=== PATIENT | female | born 1930 | race Two or more races ===

== ENCOUNTER 2017-09-01 13:45 | Inpatient (IN) | payer MEDICARE, MEDICAID ==
[~2017-09-01] VITALS: Ht 157.5 cm; Wt 49.9 kg
[~2017-09-01 13:45] MED LIST: ACIPHEX20 MG PO; ASPIR-LOW81 MG PO; GLUCOPHAGE500 MG PO; JANUVIA100 MG PO; MIRTAZAPINE30 MG PO; OSTERA TABLET1 EACH PO; PRAVACHOL40 MG PO; ROPINIROLE HCL2 MG PO
--- NOTE | 2017-09-01 14:36 | Emergency Room Report ---
History of Present Illness General Chief Complaint: Altered Level of Consciousness Source: EMS Present Illness HPI This patient presents by EMS from adult daycare. Apparently when she was dropped off this morning at adult daycare she was sleepier than usual. At baseline she has severe dementia. However, she kept falling asleep all day today. This is not typical for her behavior. Per report by EMS, the patient had been given Xanax by a family member this morning. This is not confirmed. There've been no other symptoms. The patient is arousable to name and will open eyes. However she will immediately fall back asleep. There is been no report of fever or chills or nausea or vomiting. There are no other complaints. Allergies: Coded Allergies: No Known Allergies (Unverified , 04/27/12) Patient History Past Medical History: see triage record, DM, HTN, GERD, dementia, other Past Surgical History: unable to obtain Pertinent Family History: unable to obtain Social History: Denies: smoking, alcohol use, drug use Last Menstrual Period: na Reviewed Nursing Documentation: PMH: Agreed; PSxH: Agreed Nursing Documentation-PMH Past Medical History: No History, Except For Hx Cardiac Problems: Yes Hx Diabetes: Yes Hx Cancer: No Hx Gastrointestinal Problems: Yes Hx Neurological Problems: No Review of Systems All Other Systems: limited Physical Exam Vital Signs Date Time Temp Pulse Resp B/P (MAP) Pulse Ox O2 Delivery O2 Flow Rate FiO2 09/01/17 13:37 65 12 107/53 97 Room Air Sp02 EP Interpretation: reviewed, normal General Appearance: no apparent distress, GCS 15, non-toxic, other - Sleepy but arousable. Head: normocephalic, atraumatic Eyes: bilateral eye normal inspection, bilateral eye PERRL ENT: hearing grossly normal, normal pharynx, no angioedema, normal voice Neck: full range of motion, supple/symm/no masses Respiratory: chest non-tender, lungs clear, normal breath sounds, no respiratory distress, no retraction, no accessory muscle use, speaking full sentences Cardiovascular #1: regular rate, rhythm, no edema Gastrointestinal: normal bowel sounds, non tender, soft, non-distended, no guarding, no rebound Rectal: deferred Musculoskeletal: normal range of motion, non-tender Neurologic: responsive, motor strength/tone normal, other - Non-focal. Sleepy but arousable. Follows very simple command. Unable to do full neuro exam. Skin: normal color, no rash, warm/dry, well hydrated Medical Decision Making Diagnostic Impression: Primary Impression: Altered level of consciousness ER Course The patient's daughter arrived and was bedside. I was able to get a better history on this patient. Apparently, this is happened multiple times in the past. The patient was recently admitted to another hospital where she underwent a very thorough workup to include a CT of her head, MRI of her brain and extensive laboratory workup. There was no etiology identified. The patient had been on Xanax, however, the daughter states that the caregivers are not supposed to be giving the patient the Xanax. Per EMS, when the caregivers were contacted, they reported they had given the patient Xanax this morning. I am unsure whether this patient received the Xanax. Further discussion with the daughter and the patient did get Xanax 2 days ago but doesn't believe she got it today. The family is uncomfortable taking the patient home this sleepy. Workup here in the emergency department was unremarkable. I did a CT of the head and laboratory studies to include CBC, CMP, cardiac enzymes and thyroid panel. These were all unremarkable. The patient is sleepy but arousable. The daughter states this is similar to her normal episodes. She is unsure whether her mom did have good sleep last night. Regardless, the patient will be admitted to see if she can clear her sleepiness and for further monitoring. Laboratory Tests Test 09/01/17 14:27 White Blood Count 8.7 K/UL (4.8-10.8) Red Blood Count 3.83 M/UL (4.20-5.40) L Hemoglobin 11.7 G/DL (12.0-16.0) L Hematocrit 35.2 % (37.0-47.0) L Mean Corpuscular Volume 92 FL (80-99) Mean Corpuscular Hemoglobin 30.4 PG (27.0-31.0) Mean Corpuscular Hemoglobin Concent 33.1 G/DL (32.0-36.0) Red Cell Distribution Width 13.5 % (11.6-14.8) Platelet Count 212 K/UL (150-450) Mean Platelet Volume 9.3 FL (6.5-10.1) Neutrophils (%) (Auto) 54.3 % (45.0-75.0) Lymphocytes (%) (Auto) 35.2 % (20.0-45.0) Monocytes (%) (Auto) 6.9 % (1.0-10.0) Eosinophils (%) (Auto) 2.5 % (0.0-3.0) Basophils (%) (Auto) 1.2 % (0.0-2.0) Prothrombin Time 9.4 SEC (9.30-11.50) Prothrombin Time INR 0.9 (0.9-1.1) PTT 24 SEC (23-33) Sodium Level 138 MMOL/L (136-145) Potassium Level 4.3 MMOL/L (3.5-5.1) Chloride Level 102 MMOL/L (98-107) Carbon Dioxide Level 32 MMOL/L (21-32) Anion Gap 4 mmol/L (5-15) L Blood Urea Nitrogen 29 mg/dL (7-18) H Creatinine 1.2 MG/DL (0.55-1.30) Estimate Glomerular Filtration Rate mL/min (>60) Glucose Level 114 MG/DL (74-106) H Lactic Acid Level 1.50 mmol/L (0.66-2.22) Calcium Level 10.1 MG/DL (8.5-10.1) Total Bilirubin 0.1 MG/DL (0.2-1.0) L Aspartate Amino Transferase (AST) 12 U/L (15-37) L Alanine Aminotransferase (ALT) 19 U/L (12-78) Alkaline Phosphatase 74 U/L (46-116) Total Creatine Kinase 36 U/L (26-308) Creatine Kinase MB 0.8 NG/ML (0.0-3.6) Creatine Kinase MB Relative Index 2.2 Troponin I 0.000 ng/mL (0.000-0.056) Total Protein 7.6 G/DL (6.4-8.2) Albumin 3.5 G/DL (3.4-5.0) Globulin 4.1 g/dL Albumin/Globulin Ratio 0.9 (1.0-2.7) L Thyroid Stimulating Hormone (TSH) 1.251 uiU/mL (0.358-3.740) Free Thyroxine 0.93 NG/DL (0.76-1.46) EKG Diagnostic Results Rate: normal Rhythm: NSR ST Segments: no acute changes Rhythm Strip Diag. Results EP Interpretation: yes Rate: 60's Rhythm: NSR, no PVC's, no ectopy Chest X-Ray Diagnostic Results Chest X-Ray Diagnostic Results : Chest X-Ray Ordered: Yes # of Views/Limited/Complete: 1 View Indication: Other EP Interpretation: Yes Interpretation: no consolidation, no effusion, no pneumothorax, no acute cardiopulmonary disease Impression: No acute disease Electronically Signed by: Elias CT/MRI/US Diagnostic Results CT/MRI/US Diagnostic Results : Imaging Test Ordered: CT head Impression No acute findings. See official report. Last Vital Signs Date Time Temp Pulse Resp B/P (MAP) Pulse Ox O2 Delivery O2 Flow Rate FiO2 09/01/17 13:37 65 12 107/53 97 Room Air Disposition: ADMITTED INPATIENT Condition: Stable NATALIIA MARINA D.O. Sep 01, 2017 14:36
[2017-09-01 14:40] LABS: BASOPHILS % (AUTO) 1.2 % (0.0-2.0); EOSINOPHILS % (AUTO) 2.5 % (0.0-3.0); HEMATOCRIT 35.2 % (37.0-47.0); HEMOGLOBIN 11.7 G/DL (12.0-16.0); LYMPHOCYTES % (AUTO) 35.2 % (20.0-45.0); MEAN CORPUSCULAR VOLUME 92 FL (80-99); MONOCYTES % (AUTO) 6.9 % (1.0-10.0); NEUTROPHILS % (AUTO) 54.3 % (45.0-75.0); PLATELET COUNT 212 K/UL (150-450); RED BLOOD COUNT 3.83 M/UL (4.20-5.40); RED CELL DISTRIBUTION WIDTH 13.5 % (11.6-14.8); WHITE BLOOD COUNT 8.7 K/UL (4.8-10.8)
[2017-09-01 14:49] LABS: ANION GAP 4 mmol/L (5-15); BLOOD UREA NITROGEN 29 mg/dL (7-18); CALCIUM 10.1 MG/DL (8.5-10.1); CARBON DIOXIDE 32 MMOL/L (21-32); CHLORIDE 102 MMOL/L (98-107); CREATININE 1.2 MG/DL (0.55-1.30); INR 0.9 (0.9-1.1); POTASSIUM 4.3 MMOL/L (3.5-5.1); SODIUM 138 MMOL/L (136-145)
--- NOTE | 2017-09-01 14:53 | Diagnostic Imaging Report ---
Indications: Altered mental status Technique: Spiral acquisitions obtained through the brain. Angled axial and coronal 5 x 5 mm slices were reconstructed. Total dose length product 1362.01 mGycm. CTDI vol(s) 70.38 mGy. Dose reduction achieved using automated exposure control Comparison: None. Findings: There is age-related enlargement of the ventricles and extra axial CSF spaces. Focal dilatations of the bilateral hemispheric sulci may reflect old cortical infarcts. There is periventricular deep white matter low-attenuation, consistent with chronic periventricular deep white matter ischemic change. No acute intracranial hemorrhage or edema. No mass effect nor midline shift. Intact calvarium. The visualized orbits and sinuses are unremarkable. Impression: Chronic and age-related changes. Negative for acute intracranial bleed or mass effect The CT scanner at [facility] is accredited by the [employer] and the scans are performed using protocols designed to limit radiation exposure to as low as reasonably achievable to attain images of sufficient resolution adequate for diagnostic evaluation.
[2017-09-01 15:04] LABS: ALANINE AMINOTRANSFERASE 19 U/L (12-78); ALBUMIN 3.5 G/DL (3.4-5.0); ALBUMIN/GLOBULIN RATIO 0.9 (1.0-2.7); ALKALINE PHOSPHATASE 74 U/L (46-116); ASPARTATE AMINO TRANSFERASE 12 U/L (15-37); BILIRUBIN,TOTAL 0.1 MG/DL (0.2-1.0); CKMB 0.8 NG/ML (0.0-3.6); CREATINE KINASE 36 U/L (26-308)
--- NOTE | 2017-09-01 15:11 | Diagnostic Imaging Report ---
Indication: Shortness of breath Technique: One view of the chest Comparison: none Findings: Suboptimal inspiration. Normal heart size. Tortuous calcified aorta. Upper mediastinum is unremarkable Impression: No acute process
[2017-09-01 15:53] VITALS: BP 126/57
[2017-09-01 17:46] VITALS: BP 124/72
[2017-09-01] MEDS ORDERED: QUETIAPINE FUMA25 MG ORAL (18:01)
[2017-09-01] MEDS ORDERED: RAMIPRIL2.5 MG ORAL (18:01)
[2017-09-01] MEDS ORDERED: CALCIUM 600 +1 EAC2 PO (18:12)
[2017-09-01] MEDS ORDERED: LEXAPRO10 MG ORAL (18:12)
[2017-09-01] MEDS ORDERED: MYRBETRIQ50 MG PO (18:12)
[2017-09-01] MEDS ORDERED: XIGDUO XR 5 MG1 EAC1 PO (18:12)
[2017-09-01] MEDS ORDERED: GABAPENTIN300 MG ORAL (18:12)
[2017-09-01] MEDS ORDERED: ALPRAZOLAM0.25 MG ORAL (18:12)
[2017-09-01] MEDS ORDERED: XANAX0.5 MG ORAL (18:12)
[2017-09-01] MEDS ORDERED: Miralax 17gm pkt ORAL PRN (20:00)
[2017-09-01] MEDS ORDERED: Morphine Sulfate 4mg/ml Inj IVP PRN (20:00)
[2017-09-01] MEDS ORDERED: LORazepam Inj 2mg/ml 1ml IV PRN (20:00)
[2017-09-01] MEDS ORDERED: Mylanta II UD 30ml ORAL PRN (20:00)
[2017-09-01] MEDS ORDERED: Nitroglycerin Subl 0.4mg tab SL PRN (20:00)
[2017-09-01] MEDS ORDERED: Albuterol/Ipratropium 3ml neb HHN PRN (20:00)
[2017-09-01] MEDS: Heparin 5000 units/ml inj SUBQ SCH (21:58)
[2017-09-02] VITALS: BP 133/61
[2017-09-02 04:00] VITALS: BP 124/64
[2017-09-02 08:00] VITALS: BP 139/73
[2017-09-02 08:30] LABS: BASOPHILS % (AUTO) 0.8 % (0.0-2.0); EOSINOPHILS % (AUTO) 2.1 % (0.0-3.0); HEMATOCRIT 35.9 % (37.0-47.0); HEMOGLOBIN 11.9 G/DL (12.0-16.0); LYMPHOCYTES % (AUTO) 30.3 % (20.0-45.0); MEAN CORPUSCULAR VOLUME 92 FL (80-99); NEUTROPHILS % (AUTO) 59.7 % (45.0-75.0); PLATELET COUNT 202 K/UL (150-450); RED BLOOD COUNT 3.91 M/UL (4.20-5.40); RED CELL DISTRIBUTION WIDTH 13.5 % (11.6-14.8); WHITE BLOOD COUNT 6.6 K/UL (4.8-10.8)
[2017-09-02 08:41] LABS: INR 0.9 (0.9-1.1)
[2017-09-02] MEDS ORDERED: Ramipril 2.5mg cap ORAL SCH (09:00)
[2017-09-02] MEDS: Heparin 5000 units/ml inj SUBQ SCH (09:02)
[2017-09-02 09:10] LABS: ALANINE AMINOTRANSFERASE 16 U/L (12-78); ALBUMIN/GLOBULIN RATIO 0.8 (1.0-2.7); ALKALINE PHOSPHATASE 67 U/L (46-116); ANION GAP 3 mmol/L (5-15); ASPARTATE AMINO TRANSFERASE 12 U/L (15-37); BILIRUBIN,TOTAL 0.2 MG/DL (0.2-1.0); BLOOD UREA NITROGEN 25 mg/dL (7-18); CARBON DIOXIDE 30 MMOL/L (21-32); CHLORIDE 108 MMOL/L (98-107); CHOLESTEROL 155 MG/DL (< 200); HDL CHOLESTEROL 43 MG/DL (40-60); POTASSIUM 4.1 MMOL/L (3.5-5.1); SODIUM 141 MMOL/L (136-145); TRIGLYCERIDES 130 MG/DL (30-150)
[2017-09-02 12:00] VITALS: BP 109/59
--- NOTE | 2017-09-02 14:35 | Consultation ---
History of Present Illness General Date patient seen: Sep 02, 2017 Chief Complaint: Altered Level of Consciousness Present Illness HPI patient presents by EMS from adult daycare. she was sleepier than usual. the pt pw waxing and waning of consciousness. the pt is confused and disoriented. the pt has cognitive impairment and is confused. the pt was asleep and sitter was at bedside. d/w nurse and charge to dc the sitter. Both were adamant against it. both were told to contact me if pt agitated and give meds to treat agitation, observe and monitor. If the medications wont work may consider sitter. Allergies: Coded Allergies: No Known Allergies (Unverified , 04/27/12) Medication History Scheduled Alprazolam* (Xanax*), 0.5 MG ORAL HS, (Reported) Alprazolam* (Xanax*), 0.25 MG ORAL AM, (Reported) Aspirin* (Aspir-Low*), 81 MG PO DAILY, (Reported) Calcium Carbonate/Vitamin D3 (Calcium 600 + Vit D 200 Tablet), 1 EACH PO BID, ( Reported) Dapagliflozin/Metformin HCl (Xigduo Xr 5 mg-1,000 mg Tablet), 1 EACH PO BID, ( Reported) Escitalopram Oxalate* (Lexapro*), 10 MG ORAL DAILY, (Reported) Gabapentin* (Gabapentin*), 300 MG ORAL BEDTIME, (Reported) Mirabegron (Myrbetriq), 50 MG PO DAILY, (Reported) Pravastatin Sodium (Pravachol), 40 MG PO HS, (Reported) Quetiapine Fumarate* (Seroquel*), 50 MG ORAL HS, (Reported) Ramipril* (Ramipril*), 2.5 MG ORAL DAILY, (Reported) Ropinirole Hcl* (Ropinirole Hcl*), 2 MG PO HS, (Reported) Discontinued Medications Metformin Hcl* (Glucophage*), 1,000 MG PO BID, (Reported) Discontinued Reason: Therapy completed Mirtazapine* (Remeron*), 30 MG PO QHS, (Reported) Discontinued Reason: Therapy completed Rabeprazole Sodium (Aciphex), 20 MG PO DAILY, (Reported) Discontinued Reason: Therapy completed Sitagliptin (Januvia), 100 MG PO DAILY, (Reported) Discontinued Reason: Pt stopped taking med Vit D3 & K/Berberine Hcl/Hops (Ostera Tablet), 1 EACH PO 1XWEEK, (Reported) Discontinued Reason: Pt stopped taking med Patient History Limited by: medical condition History Provided By: Patient, Medical Record Healthcare decision maker Resuscitation status Full Code Advanced Directive on File Review of Systems Psychiatric: Reports: see HPI, prior hx, anxiety, depressed feelings Physical Exam General Appearance: no apparent distress, alert, confused Last 24 Hour Vital Signs Date Time Temp Pulse Resp B/P (MAP) Pulse Ox O2 Delivery O2 Flow Rate FiO2 09/02/17 12:00 97.9 75 17 109/59 99 97.9 09/02/17 09:01 131/73 09/02/17 08:31 78 16 Room Air 21 09/02/17 08:00 98.0 73 19 139/73 98 98.0 09/02/17 04:00 97.7 65 19 124/64 97 97.7 09/02/17 00:00 97.9 63 20 133/61 97 97.9 09/01/17 20:27 97.8 72 21 124/72 98 Room Air 97.8 09/01/17 17:46 97.8 72 21 124/72 98 Room Air 97.8 09/01/17 15:53 68 22 126/57 97 Room Air Intake and Output 09/01/17 09/02/17 19:00 07:00 Intake Total 240 ml Output Total 0 ml Balance 0 ml 240 ml Intake Oral 240 ml Output Urine Total 0 ml # Voids 2 Laboratory Tests Test 09/02/17 08:00 White Blood Count 6.6 K/UL (4.8-10.8) Red Blood Count 3.91 M/UL (4.20-5.40) L Hemoglobin 11.9 G/DL (12.0-16.0) L Hematocrit 35.9 % (37.0-47.0) L Mean Corpuscular Volume 92 FL (80-99) Mean Corpuscular Hemoglobin 30.4 PG (27.0-31.0) Mean Corpuscular Hemoglobin Concent 33.1 G/DL (32.0-36.0) Red Cell Distribution Width 13.5 % (11.6-14.8) Platelet Count 202 K/UL (150-450) Mean Platelet Volume 9.3 FL (6.5-10.1) Neutrophils (%) (Auto) 59.7 % (45.0-75.0) Lymphocytes (%) (Auto) 30.3 % (20.0-45.0) Monocytes (%) (Auto) 7.0 % (1.0-10.0) Eosinophils (%) (Auto) 2.1 % (0.0-3.0) Basophils (%) (Auto) 0.8 % (0.0-2.0) Prothrombin Time 9.9 SEC (9.30-11.50) Prothromb Time International Ratio 0.9 (0.9-1.1) Activated Partial Thromboplast Time 24 SEC (23-33) Sodium Level 141 MMOL/L (136-145) Potassium Level 4.1 MMOL/L (3.5-5.1) Chloride Level 108 MMOL/L (98-107) H Carbon Dioxide Level 30 MMOL/L (21-32) Anion Gap 3 mmol/L (5-15) L Blood Urea Nitrogen 25 mg/dL (7-18) H Creatinine 1.0 MG/DL (0.55-1.30) Estimat Glomerular Filtration Rate mL/min (>60) Glucose Level 104 MG/DL (74-106) Calcium Level 10.0 MG/DL (8.5-10.1) Total Bilirubin 0.2 MG/DL (0.2-1.0) Aspartate Amino Transf (AST/SGOT) 12 U/L (15-37) L Alanine Aminotransferase (ALT/SGPT) 16 U/L (12-78) Alkaline Phosphatase 67 U/L (46-116) Total Protein 6.9 G/DL (6.4-8.2) Albumin 3.0 G/DL (3.4-5.0) L Globulin 3.9 g/dL Albumin/Globulin Ratio 0.8 (1.0-2.7) L Triglycerides Level 130 MG/DL (30-150) Cholesterol Level 155 MG/DL (< 200) LDL Cholesterol 87 mg/dL (<100) HDL Cholesterol 43 MG/DL (40-60) Cholesterol/HDL Ratio 3.6 (3.3-4.4) Thyroid Stimulating Hormone (TSH) 0.793 uiU/mL (0.358-3.740) Height (Feet): 5 Height (Inches): 2.00 Weight (Pounds): 110 Medications Current Medications Medications (Trade) Dose Ordered Sig/Stepan Route PRN Reason Start Time Stop Time Status Last Admin Dose Admin Acetaminophen (Tylenol) 650 mg Q4H PRN ORAL fever 09/01/17 20:00 10/01/17 19:59 Al Hydroxide/Mg Hydroxide (Mylanta II) 30 ml Q6H PRN ORAL dyspepsia 09/01/17 20:00 10/01/17 19:59 Albuterol/ Ipratropium (Albuterol/ Ipratropium) 3 ml Q4H PRN HHN Shortness of Breath 09/01/17 20:00 09/06/17 19:59 Clonidine HCl (Catapres Tab) 0.1 mg Q4H PRN ORAL SBP > 160 09/01/17 20:00 10/01/17 19:59 Dextrose (Dextrose 50%) 25 ml STAT PRN IV Hypoglycemia btwn 60-69 mg/dL 09/01/17 20:00 10/01/17 19:59 Dextrose (Dextrose 50%) 50 ml STAT PRN IV Hypoglycemia <60 mg/dL 09/01/17 20:00 10/01/17 19:59 Escitalopram Oxalate (Lexapro) 10 mg DAILY ORAL 09/02/17 09:00 10/02/17 08:59 09/02/17 09:01 Gabapentin (Neurontin) 300 mg BEDTIME ORAL 09/01/17 21:00 10/01/17 20:59 09/01/17 21:56 Heparin Sodium (Porcine) (Heparin 5000 units/ml) 5,000 units EVERY 12 HOURS SUBQ 09/01/17 21:00 10/01/17 20:59 09/02/17 09:02 Lorazepam (Ativan 2mg/ml 1ml) 0.5 mg Q4H PRN IV For Anxiety 09/01/17 20:00 09/08/17 19:59 09/02/17 13:13 Morphine Sulfate (Morphine Sulfate) 1 mg Q4H PRN IVP For Pain 7-10 09/01/17 20:00 09/08/17 19:59 Nitroglycerin (Ntg) 0.4 mg Q5M X 3 DOSES PRN SL Prn Chest Pain 09/01/17 20:00 10/01/17 19:59 Non-Formulary Medication (Non-Formulary Med) 1 ea BID ORAL 09/02/17 09:00 10/02/17 08:59 UNV Ondansetron HCl (Zofran) 4 mg Q6H PRN IVP Nausea & Vomiting 09/01/17 20:00 10/01/17 19:59 Polyethylene Glycol (Miralax) 17 gm HSPRN PRN ORAL Constipation 09/01/17 20:00 10/01/17 19:59 Quetiapine Fumarate (SEROquel) 50 mg DAILY ORAL 09/02/17 09:00 10/02/17 08:59 09/02/17 09:01 Ramipril (Altace) 2.5 mg DAILY ORAL 09/02/17 09:00 10/02/17 08:59 09/02/17 09:01 Temazepam (Restoril) 15 mg HSPRN PRN ORAL Insomnia 09/01/17 20:00 09/08/17 19:59 09/01/17 21:56 Assessment/Plan Status: stable Assessment/Plan dementia with behavioral disturbance encephalopathy seroquel ativan prn raise the bed Dolores Martinez M.D. Sep 02, 2017 14:35
--- NOTE | 2017-09-02 16:05 | Consultation ---
History of Present Illness General Date patient seen: Sep 02, 2017 Chief Complaint: Altered Level of Consciousness Reason for Consultation: high risk aspiration Present Illness HPI 87 year old female with hx of advanced dementia, DM, HTN, presented by EMS from adult daycare because of altered mental status. Per report by EMS, the patient had been given Xanax by a family member this morning. The patient is arousable to name and will open eyes. She was admitted recently to a different hospital with the same complains. Extensive w/u was negative. Allergies: Coded Allergies: No Known Allergies (Unverified , 04/27/12) Medication History Scheduled Alprazolam* (Xanax*), 0.5 MG ORAL HS, (Reported) Alprazolam* (Xanax*), 0.25 MG ORAL AM, (Reported) Aspirin* (Aspir-Low*), 81 MG PO DAILY, (Reported) Calcium Carbonate/Vitamin D3 (Calcium 600 + Vit D 200 Tablet), 1 EACH PO BID, ( Reported) Dapagliflozin/Metformin HCl (Xigduo Xr 5 mg-1,000 mg Tablet), 1 EACH PO BID, ( Reported) Escitalopram Oxalate* (Lexapro*), 10 MG ORAL DAILY, (Reported) Gabapentin* (Gabapentin*), 300 MG ORAL BEDTIME, (Reported) Mirabegron (Myrbetriq), 50 MG PO DAILY, (Reported) Pravastatin Sodium (Pravachol), 40 MG PO HS, (Reported) Quetiapine Fumarate* (Seroquel*), 50 MG ORAL HS, (Reported) Ramipril* (Ramipril*), 2.5 MG ORAL DAILY, (Reported) Ropinirole Hcl* (Ropinirole Hcl*), 2 MG PO HS, (Reported) Discontinued Medications Metformin Hcl* (Glucophage*), 1,000 MG PO BID, (Reported) Discontinued Reason: Therapy completed Mirtazapine* (Remeron*), 30 MG PO QHS, (Reported) Discontinued Reason: Therapy completed Rabeprazole Sodium (Aciphex), 20 MG PO DAILY, (Reported) Discontinued Reason: Therapy completed Sitagliptin (Januvia), 100 MG PO DAILY, (Reported) Discontinued Reason: Pt stopped taking med Vit D3 & K/Berberine Hcl/Hops (Ostera Tablet), 1 EACH PO 1XWEEK, (Reported) Discontinued Reason: Pt stopped taking med Patient History Healthcare decision maker Resuscitation status Full Code Advanced Directive on File Past Medical/Surgical History Past Medical/Surgical History: (1) Diabetes mellitus (2) Hypertension (3) Dementia Physical Exam General Appearance: cachetic Lines, tubes and drains: peripheral Neck: non-tender, normal alignment Respiratory/Chest: chest wall non-tender, lungs clear Breasts: no masses Cardiovascular/Chest: normal peripheral pulses Abdomen: normal bowel sounds, non tender Genitourinary/Rectal: normal genital exam, normal rectal exam Extremities: normal range of motion, non-tender Neurologic: public relations writer II-XII grossly normal Last 24 Hour Vital Signs Date Time Temp Pulse Resp B/P (MAP) Pulse Ox O2 Delivery O2 Flow Rate FiO2 09/02/17 12:00 97.9 75 17 109/59 99 97.9 09/02/17 09:01 131/73 09/02/17 08:31 78 16 Room Air 21 09/02/17 08:00 98.0 73 19 139/73 98 98.0 09/02/17 04:00 97.7 65 19 124/64 97 97.7 09/02/17 00:00 97.9 63 20 133/61 97 97.9 09/01/17 20:27 97.8 72 21 124/72 98 Room Air 97.8 09/01/17 17:46 97.8 72 21 124/72 98 Room Air 97.8 Intake and Output 09/01/17 09/02/17 19:00 07:00 Intake Total 240 ml Output Total 0 ml Balance 0 ml 240 ml Intake Oral 240 ml Output Urine Total 0 ml # Voids 2 Laboratory Tests Test 09/02/17 08:00 White Blood Count 6.6 K/UL (4.8-10.8) Red Blood Count 3.91 M/UL (4.20-5.40) L Hemoglobin 11.9 G/DL (12.0-16.0) L Hematocrit 35.9 % (37.0-47.0) L Mean Corpuscular Volume 92 FL (80-99) Mean Corpuscular Hemoglobin 30.4 PG (27.0-31.0) Mean Corpuscular Hemoglobin Concent 33.1 G/DL (32.0-36.0) Red Cell Distribution Width 13.5 % (11.6-14.8) Platelet Count 202 K/UL (150-450) Mean Platelet Volume 9.3 FL (6.5-10.1) Neutrophils (%) (Auto) 59.7 % (45.0-75.0) Lymphocytes (%) (Auto) 30.3 % (20.0-45.0) Monocytes (%) (Auto) 7.0 % (1.0-10.0) Eosinophils (%) (Auto) 2.1 % (0.0-3.0) Basophils (%) (Auto) 0.8 % (0.0-2.0) Prothrombin Time 9.9 SEC (9.30-11.50) Prothromb Time International Ratio 0.9 (0.9-1.1) Activated Partial Thromboplast Time 24 SEC (23-33) Sodium Level 141 MMOL/L (136-145) Potassium Level 4.1 MMOL/L (3.5-5.1) Chloride Level 108 MMOL/L (98-107) H Carbon Dioxide Level 30 MMOL/L (21-32) Anion Gap 3 mmol/L (5-15) L Blood Urea Nitrogen 25 mg/dL (7-18) H Creatinine 1.0 MG/DL (0.55-1.30) Estimat Glomerular Filtration Rate mL/min (>60) Glucose Level 104 MG/DL (74-106) Calcium Level 10.0 MG/DL (8.5-10.1) Total Bilirubin 0.2 MG/DL (0.2-1.0) Aspartate Amino Transf (AST/SGOT) 12 U/L (15-37) L Alanine Aminotransferase (ALT/SGPT) 16 U/L (12-78) Alkaline Phosphatase 67 U/L (46-116) Total Protein 6.9 G/DL (6.4-8.2) Albumin 3.0 G/DL (3.4-5.0) L Globulin 3.9 g/dL Albumin/Globulin Ratio 0.8 (1.0-2.7) L Triglycerides Level 130 MG/DL (30-150) Cholesterol Level 155 MG/DL (< 200) LDL Cholesterol 87 mg/dL (<100) HDL Cholesterol 43 MG/DL (40-60) Cholesterol/HDL Ratio 3.6 (3.3-4.4) Thyroid Stimulating Hormone (TSH) 0.793 uiU/mL (0.358-3.740) Height (Feet): 5 Height (Inches): 2.00 Weight (Pounds): 110 Medications Current Medications Medications (Trade) Dose Ordered Sig/Stepan Route PRN Reason Start Time Stop Time Status Last Admin Dose Admin Acetaminophen (Tylenol) 650 mg Q4H PRN ORAL fever 09/01/17 20:00 10/01/17 19:59 Al Hydroxide/Mg Hydroxide (Mylanta II) 30 ml Q6H PRN ORAL dyspepsia 09/01/17 20:00 10/01/17 19:59 Albuterol/ Ipratropium (Albuterol/ Ipratropium) 3 ml Q4H PRN HHN Shortness of Breath 09/01/17 20:00 09/06/17 19:59 Clonidine HCl (Catapres Tab) 0.1 mg Q4H PRN ORAL SBP > 160 09/01/17 20:00 10/01/17 19:59 Dextrose (Dextrose 50%) 25 ml STAT PRN IV Hypoglycemia btwn 60-69 mg/dL 09/01/17 20:00 10/01/17 19:59 Dextrose (Dextrose 50%) 50 ml STAT PRN IV Hypoglycemia <60 mg/dL 09/01/17 20:00 10/01/17 19:59 Escitalopram Oxalate (Lexapro) 10 mg DAILY ORAL 09/02/17 09:00 10/02/17 08:59 09/02/17 09:01 Gabapentin (Neurontin) 300 mg BEDTIME ORAL 09/01/17 21:00 10/01/17 20:59 09/01/17 21:56 Heparin Sodium (Porcine) (Heparin 5000 units/ml) 5,000 units EVERY 12 HOURS SUBQ 09/01/17 21:00 10/01/17 20:59 09/02/17 09:02 Lorazepam (Ativan 2mg/ml 1ml) 0.5 mg Q4H PRN IV For Anxiety 09/01/17 20:00 09/08/17 19:59 09/02/17 13:13 Morphine Sulfate (Morphine Sulfate) 1 mg Q4H PRN IVP For Pain 7-10 09/01/17 20:00 09/08/17 19:59 Nitroglycerin (Ntg) 0.4 mg Q5M X 3 DOSES PRN SL Prn Chest Pain 09/01/17 20:00 10/01/17 19:59 Non-Formulary Medication (Non-Formulary Med) 1 ea BID ORAL 09/02/17 09:00 10/02/17 08:59 UNV Ondansetron HCl (Zofran) 4 mg Q6H PRN IVP Nausea & Vomiting 09/01/17 20:00 10/01/17 19:59 Polyethylene Glycol (Miralax) 17 gm HSPRN PRN ORAL Constipation 09/01/17 20:00 10/01/17 19:59 Quetiapine Fumarate (SEROquel) 25 mg DAILY ORAL 09/03/17 09:00 10/03/17 08:59 Quetiapine Fumarate (SEROquel) 25 mg QPM ORAL 09/02/17 16:30 10/02/17 16:29 Quetiapine Fumarate (SEROquel) 50 mg DAILY ORAL 09/02/17 09:00 10/02/17 08:59 09/02/17 09:01 Ramipril (Altace) 2.5 mg DAILY ORAL 09/02/17 09:00 10/02/17 08:59 09/02/17 09:01 Temazepam (Restoril) 15 mg HSPRN PRN ORAL Insomnia 09/01/17 20:00 09/08/17 19:59 09/01/17 21:56 Assessment/Plan Problem List: (1) Acute encephalopathy ICD Codes: G93.40 - Encephalopathy, unspecified SNOMED: 85924465, 748352793 (2) At high risk for aspiration ICD Codes: Z91.89 - Other specified personal risk factors, not elsewhere classified SNOMED: 328876155 (3) Hypertension ICD Codes: I10 - Essential (primary) hypertension SNOMED: 85441742 (4) Diabetes mellitus ICD Codes: E11.9 - Type 2 diabetes mellitus without complications SNOMED: 66926144 (5) Dementia ICD Codes: F03.90 - Unspecified dementia without behavioral disturbance SNOMED: 27056803 Assessment/Plan frequent neuro check swallow study aspiration precaution psych evaluation sliding scale iv fluids check electrolytes. Irina Ramachandran MD Sep 02, 2017 16:05
--- NOTE | 2017-09-02 21:22 | Cardiology Report ---
APPROVED REPORT EKG Measurement Heart [id number] Sinus bradycardia Left axis deviation Anteroseptal infarct, age undetermined Abnormal ECG
--- NOTE | 2017-09-03 00:02 | Diagnostic Imaging Report ---
APPROVED REPORT CPT Code: 16898 Vascular Symptoms Comments: SIERRA. CAROTID (BILATERAL) - Imaging reveals no significant plaque within the right and left extracranial carotid arteries. The Doppler spectral flow analysis is within normal limits throughout the extracranial carotid arteries bilaterally. VERTEBRAL- The vertebral arteries are within normal limits.
--- NOTE | 2017-09-03 08:21 | Cardiology Report ---
APPROVED REPORT EXAM: Two-dimensional and M-mode echocardiogram with Doppler and color Doppler. M-Mode DIMENSIONS IVSd1.0 (0.7-1.1cm)Left Atrium (MM)3.4 (1.6-4.0cm) LVDd4.2 (3.5-5.6cm)Aortic Root3.4 (2.0-3.7cm) PWd0.8 (0.7-1.1cm)Aortic Cusp Exc.1.8 (1.5-2.0cm) IVSs1.5 cm LVDs2.4 (2.5-4.0cm) PWs1.3 cm Normal left ventricular chamber size, systolic function and wall motion . Left ventricular ejection fraction estimated to be 65-70 %. No evidence of ventricular hypertrophy . No evidence of pericardial effusion. All other cardiac chamber sizes are within normal limits. Focal aortic valve sclerosis with adequate cusp excursion. Mildly Thickened mitral valve leaflets with normal excursion. Mildly Mitral annulus and aortic root calcification. Pulmonic valve not well visualized. Normal tricuspid valve structure. IVC at normal size with physiological collapse . A color flow and spectral Doppler study was performed and revealed: Trace aortic regurgitation. Trace mitral regurgitation. Mitral diastolic velocities suggest reduced left ventricular relaxation c/w mild LV diastolic dysfunction (Grade I ). Mild tricuspid regurgitation. Tricuspid systolic velocities suggests peak right ventricular systolic pressure of 36, consistent with mild hypertension.
--- NOTE | 2017-09-03 10:41 | Discharge Summary ---
Discharge Summary Discharge Summary Discharge Summary DATE OF ADMISSION: 09/01/2017 DATE OF DISCHARGE: 09/02/2017 CONSULTANTS: Dr. Dolores Oliver BRIEF HOSPITAL COURSE: Patient is an 87-year-old female who presented to ED from adult daycare. She was noted to be more sleepy done usual. She has baseline dementia, however she kept falling asleep all day. This was not her typical behavior. Per EMS report , he was given Xanax by family members. Patient was arousable to name however immediately falls back to sleep. He has medical history significant for diabetes mellitus, hypertension, GERD, dementia. On evaluation at ED, blood work was stable. EKG was in normal sinus rhythm. Chest x-ray showed no acute cardiopulmonary disease. CT of the head showed no acute findings. She was then admitted for evaluation of altered mental status/ encephalopathy. She was initially placed a sitter for patient safety. She was seen by a psychiatrist and was given Seroquel and Ativan. Echocardiogram showed ejection fraction of 65-70% with no evidence of left ventricular hypertrophy. Carotid duplex scan showed no significant plaques within the left and right extracranial carotid arteries. Doppler spectral flow was within normal limits. Vertebral arteries are within normal limits. Full treatment was not carried out as patient left AGAINST MEDICAL ADVICE. FINAL DIAGNOSES: Acute encephalopathy High risk for aspiration Hypertension Diabetes mellitus dementia with behavioral disturbance DISPOSITION: Left AMA I have been assigned to dictate discharge summary on this account, and I was not involved in the patient's management. Luly Oneill NP Sep 03, 2017 10:41
== END 2017-09-02 16:43 | disposition left against medical advice (07) | DRG 71 ==
LOC: EDBD 13:45 → EMR 15:16 → 4E 17:45 → EDBEDREQ 19:01 → 4E 20:20
DX: G93.40 Encephalopathy, unspecified (principal); F03.91 Unspecified dementia, unspecified severity, with behavioral disturbance; I10 Essential (primary) hypertension; E11.9 Type 2 diabetes mellitus without complications; K21.9 Gastro-esophageal reflux disease without esophagitis
CPT/HCPCS: 36415; 70450; 71045; 80053; 80061; 82550; 82553; 83605; 84439; 84443; 84484; 85025; 85610; 85730; 87040; 93005; 93306; 93880; 94664; 99285

== ENCOUNTER 2019-06-20 11:25 | Inpatient (IN) | payer MEDICARE, MEDICAID ==
[2019-06-20] VITALS (7 sets, daily range): BP systolic 99–140; BP diastolic 47–75
[~2019-06-20] VITALS: Ht 142.2 cm; Wt 52.2 kg
[~2019-06-20 11:25] MED LIST changes: +ABILIFY2 MG ORAL; +ALPRAZOLAM0.25 MG ORAL; +ASPIR 8181 MG ORAL; +CALCIUM 600 +1 EAC2 PO; +CYTOMEL5 MCG ORAL; +GABAPENTIN300 MG ORAL; +JANUVIA25 MG ORAL; +LEXAPRO10 MG ORAL; +MECLIZINE HCL25 MG ORAL; +MIRTAZAPINE7.5 MG ORAL; +MYRBETRIQ50 MG PO; +NEXIUM40 MG ORAL; +PRAVASTATIN SOD20 M1 ORAL; +QUETIAPINE FUMA25 MG ORAL; +QUETIAPINE FUMA50 MG ORAL; +RAMIPRIL2.5 MG ORAL; +XANAX0.25 MG ORAL; +XANAX0.5 MG ORAL; +XIGDUO XR 5 MG1 EAC1 PO
--- NOTE | 2019-06-20 11:30 | NUR ---
ED Nurse Note: pt arrived with RA 61 due to new onset of ALOC. per ems pt was at day center and when pt arrived at snf with was aox0; pt baseline is aox2. iv line inserted; patent and intact. blood specimen drawn and sent to lab. xray at bedside
--- NOTE | 2019-06-20 11:31 | NUR ---
ED Nurse Note: Pt skin dry, loose, scaly, and scratches noted on bilateral lower extremities.
--- NOTE | 2019-06-20 11:31 | NUR ---
ED Nurse Note: per ems pt was given 10 untis of lantus en route
[2019-06-20 11:56] LABS: BASOPHILS % (AUTO) 0.9 % (0.0-2.0); EOSINOPHILS % (AUTO) 2.6 % (0.0-3.0); HEMATOCRIT 33.7 % (37.0-47.0); HEMOGLOBIN 11.1 G/DL (12.0-16.0); LYMPHOCYTES % (AUTO) 22.1 % (20.0-45.0); MEAN CORPUSCULAR VOLUME 91 FL (80-99); MONOCYTES % (AUTO) 8.3 % (1.0-10.0); NEUTROPHILS % (AUTO) 66.1 % (45.0-75.0); PLATELET COUNT 212 K/UL (150-450); RED BLOOD COUNT 3.69 M/UL (4.20-5.40); RED CELL DISTRIBUTION WIDTH 13.2 % (11.6-14.8); WHITE BLOOD COUNT 9.2 K/UL (4.8-10.8)
--- NOTE | 2019-06-20 11:58 | Diagnostic Imaging Report ---
Indication: Dyspnea Comparison: 09/01/2017 A single view chest radiograph was obtained. Findings: The heart is enlarged. Aorta is mildly enlarged. Bones are osteopenic. Lung volumes are low. Bronchovascular markings are somewhat prominent. IMPRESSION: No acute disease. Limited evaluation
[2019-06-20 12:05] LABS: INR 0.9 (0.9-1.1)
--- NOTE | 2019-06-20 12:15 | Emergency Room Report ---
History of Present Illness General Chief Complaint: Altered Mental Status Source: Family Member, Medical Record Present Illness HPI Patient is an 89-year-old female brought in by EMS after increased confusion. Patient some prior history of dementia. She is also type II diabetic. Patient was noted to have increased generalized confusion over the past few days. She had recently been hospitalized for similar symptoms. Had recent CT imaging which did not show any evidence of acute CVA.Patient is Farsi speaking. History is markedly limited by patient's poor historian Allergies: Coded Allergies: No Known Allergies (Unverified , 06/20/19) Patient History Past Medical History: see triage record Reviewed Nursing Documentation: PMH: Agreed; PSxH: Agreed Nursing Documentation-PMH Hx Cardiac Problems: No Hx Diabetes: Yes Hx Cancer: No Hx Gastrointestinal Problems: Yes - GI problems Hx Neurological Problems: Yes Hx Dementia: Yes Review of Systems All Other Systems: limited - Review of systems: Review systems is limited by patient's being a poor historian Physical Exam Vital Signs Date Time Temp Pulse Resp B/P (MAP) Pulse Ox O2 Delivery O2 Flow Rate FiO2 06/20/19 11:19 98.8 98 16 155/75 (101) 98 Room Air General Appearance: no apparent distress, alert, Chronically Ill Eyes: bilateral eye PERRL ENT: hearing grossly normal Neck: full range of motion, supple Respiratory: chest non-tender, lungs clear, normal breath sounds Cardiovascular #1: normal inspection Gastrointestinal: normal inspection, non tender Musculoskeletal: normal inspection Neurologic: alert, other - dementia, confusion Medical Decision Making Diagnostic Impression: Primary Impression: Dementia Additional Impressions: Diabetes mellitus Hypoglycemia ER Course Patient presented for altered mental status. Differential diagnosis included but was not limited to ischemic stroke, subarachnoid hemorrhage, hypoglycemia, spinal cord injury, neurodegenerative disorder, urinary tract infection, hypoxemia. Because of complexity of patient's case laboratory tests and imaging studies were ordered. Patient's son contacted the hospital. Apparently patient had recent similar symptoms and had recent work-up. Patient had some episodes episodes of hypoglycemia at that time.I discussed the patient' s ER course with patient's daughter at length and she states that she wants the patient discharged back to her facility despite episode of hypoglycemia with a sugar of 12. Patient had reportedly had multiple previous episodes of this in the past and this occurs frequently at her facility. Patient was noted to have brief improvement in sugar with recurrent hypoglycemia. Patient was discussed with DR. Villagran who agrees with admission.Patient was started on D10W. Labs Test 06/20/19 11:34 White Blood Count 9.2 K/UL (4.8-10.8) Red Blood Count 3.69 M/UL (4.20-5.40) Hemoglobin 11.1 G/DL (12.0-16.0) Hematocrit 33.7 % (37.0-47.0) Mean Corpuscular Volume 91 FL (80-99) Mean Corpuscular Hemoglobin 30.0 PG (27.0-31.0) Mean Corpuscular Hemoglobin Concent 32.8 G/DL (32.0-36.0) Red Cell Distribution Width 13.2 % (11.6-14.8) Platelet Count 212 K/UL (150-450) Mean Platelet Volume 8.2 FL (6.5-10.1) Neutrophils (%) (Auto) 66.1 % (45.0-75.0) Lymphocytes (%) (Auto) 22.1 % (20.0-45.0) Monocytes (%) (Auto) 8.3 % (1.0-10.0) Eosinophils (%) (Auto) 2.6 % (0.0-3.0) Basophils (%) (Auto) 0.9 % (0.0-2.0) Prothrombin Time 9.9 SEC (9.30-11.50) Prothromb Time International Ratio 0.9 (0.9-1.1) Activated Partial Thromboplast Time 24 SEC (23-33) EKG Diagnostic Results Rate: normal - 87 Rhythm: NSR ST Segments: no acute changes Last Vital Signs Date Time Temp Pulse Resp B/P (MAP) Pulse Ox O2 Delivery O2 Flow Rate FiO2 06/20/19 11:30 98.8 97 16 140/58 100 Room Air Status: improved Disposition: ADMITTED INPATIENT Condition: Stable Gilberto Castro MD Jun 20, 2019 12:15
--- NOTE | 2019-06-20 12:15 | NUR ---
ED Nurse Note: Pt pulled IV site out. ERMD notified. Son was contacted and said he will citrus picker mother. Will continue to monitor pt and wait for further orders. Urine unable to obtain at this time; ERMD Aware.
--- NOTE | 2019-06-20 12:20 | NUR ---
ED Nurse Note: Per ermd, CT head will not be compeleted for pt. wait for son to arrive.
[2019-06-20 12:28] LABS: ANION GAP 7 mmol/L (5-15); BLOOD UREA NITROGEN 31 mg/dL (7-18); CALCIUM 9.6 MG/DL (8.5-10.1); CARBON DIOXIDE 28 MMOL/L (21-32); CHLORIDE 105 MMOL/L (98-107); CREATININE 1.2 MG/DL (0.55-1.30); POTASSIUM 4.1 MMOL/L (3.5-5.1); SODIUM 140 MMOL/L (136-145)
[2019-06-20 12:34] LABS: ALANINE AMINOTRANSFERASE 19 U/L (12-78); ALBUMIN/GLOBULIN RATIO 0.7 (1.0-2.7); ALKALINE PHOSPHATASE 87 U/L (46-116); ASPARTATE AMINO TRANSFERASE 15 U/L (15-37); BILIRUBIN,TOTAL 0.2 MG/DL (0.2-1.0); CKMB 1.7 NG/ML (0.0-3.6); CREATINE KINASE 102 U/L (26-308)
--- NOTE | 2019-06-20 13:31 | NUR ---
ED Nurse Note: Pt given 1 apple juice. finshed 100%
--- NOTE | 2019-06-20 13:55 | NUR ---
ED Nurse Note: daughter called, and wishes mother to be sent back to SNF. ERMD aware, will await further orders.
--- NOTE | 2019-06-20 15:25 | NUR ---
ED Nurse Note: called pharmacy for medication of 0.45Dextros ein 1 L NS. per pharmacy they will bring medication to ED
[2019-06-20] MEDS ORDERED: D5 1/2NS 1,000 ML IV SCH (15:30)
[2019-06-20] MEDS ORDERED: Dextrose 10% 1,000 ML IV SCH (16:15)
--- NOTE | 2019-06-20 17:11 | NUR ---
ED Nurse Note: TELEPHONE ENDORSEMENT GIVEN TO ALYX POSADA FOR CONTINUITY OF CARE
--- NOTE | 2019-06-20 17:20 | NUR ---
TRANSFER TO FLOOR: Patient transferred to [facility] as ordered, per ERMD . Report given to ALYX MOY. Belongings and medications given to PT.
--- NOTE | 2019-06-20 17:30 | NUR ---
NURSE NOTES: Received patient from ER via gurney.Patient is awake, verbally responsive. Farsi speaking. patient's all belongings were checked, no missing items,upper denture was worn by the patient. IV is intact. Skin assessment done, no pressure ulcer but noted with some dry scabs and multiple scratch majano on upper and lower ex's and back. Blood sugar was checked. 55mg/dl. Given orange juice per protocol. Patient tolerated well. Will continue to monitor.Patient is wearing Yellow gown, socks, door sign is on. Bed is in lowest position and locked. Call light within reach, bed alarm is on. Tried to hold off Dr. Mcfarland but no one answered the phone and no voice message. supervisor bottle house cleaners was informed. Will follow up.
[2019-06-20] MEDS ORDERED: Meclizine 25mg tab ORAL PRN (18:30)
[2019-06-20] MEDS ORDERED: ALPRAZolam 0.25mg tab ORAL PRN ×2 (18:30→18:45)
--- NOTE | 2019-06-20 18:40 | NUR ---
NURSE NOTES: Received call from Dr. corral and received admission orders. Patient's blood sugar is 101mg /dl. Unable to obtain medical history from the patient since patient is confused, alert and oriented x1 @ this time.
--- NOTE | 2019-06-20 19:32 | NUR ---
HAND-OFF: Report given to Joseph.
--- NOTE | 2019-06-20 19:57 | NUR ---
NURSE NOTES: Pt is in bed awake, alert orientedx1 and confused. Breathing even and unlabored, no acute distress noted. Noted pt trying to get out of bed without assistance. Fall precaution is in place. bed in low and locked position. Bed alarm is on. call light within reach. Will move pt closer to nursing station and continue to monitor the pt.
[2019-06-20] MEDS: Dextrose 10% 1,000 ML IV SCH (20:00)
[2019-06-20] MEDS: Heparin 5000 units/ml inj SUBQ SCH (20:47)
--- NOTE | 2019-06-20 23:48 | History & Physical ---
History and Physical History & Physicial Patient Name: Carlota Harris Unit Number: [id number] Date of : 1930 Patient Status: Admitted Inpatient Attending Doctor: Omari Villagran MD Chief Complaint: Altered Mental Status Present Illness HPI Patient is an 89-year-old female brought in by EMS after increased confusion. Patient some prior history of dementia. She is also type II diabetic. Patient was noted to have increased generalized confusion over the past few days. She had recently been hospitalized for similar symptoms. Had recent CT imaging which did not show any evidence of acute CVA.Patient is Farsi speaking. History is markedly limited by patient's poor historian. noted with hypoglycemia.. recurrent hypoglycemia resulted in multiple hospital admissions Allergies: Coded Allergies: No Known Allergies (Unverified , 06/20/19) Patient History Past Medical History: see triage record Reviewed Nursing Documentation: PMH: Agreed; PSxH: Agreed Nursing Documentation-PMH Hx Cardiac Problems: No Hx Diabetes: Yes Hx Cancer: No Hx Gastrointestinal Problems: Yes - GI problems Hx Neurological Problems: Yes Hx Dementia: Yes ER ROS - General Review of Systems All Other Systems: limited - Review of systems: Review systems is limited by patient's being a poor historian ER Physical Exam - General Physical Exam Vital Signs Date Time Temp Pulse Resp B/P (MAP) Pulse Ox O2 Delivery O2 Flow Rate FiO2 06/20/19 11:19 98.8 98 16 155/75 (101) 98 Room Air General Appearance: no apparent distress, alert, Chronically Ill Eyes: bilateral eye PERRL ENT: hearing grossly normal Neck: full range of motion, supple Respiratory: chest non-tender, lungs clear, normal breath sounds Cardiovascular #1: normal inspection Gastrointestinal: normal inspection, non tender Musculoskeletal: normal inspection Neurologic: alert, other - dementia, confusion Labs Test 06/20/19 11:34 White Blood Count 9.2 K/UL (4.8-10.8) Red Blood Count 3.69 M/UL (4.20-5.40) Hemoglobin 11.1 G/DL (12.0-16.0) Hematocrit 33.7 % (37.0-47.0) Mean Corpuscular Volume 91 FL (80-99) Mean Corpuscular Hemoglobin 30.0 PG (27.0-31.0) Mean Corpuscular Hemoglobin Concent 32.8 G/DL (32.0-36.0) Red Cell Distribution Width 13.2 % (11.6-14.8) Platelet Count 212 K/UL (150-450) Mean Platelet Volume 8.2 FL (6.5-10.1) Neutrophils (%) (Auto) 66.1 % (45.0-75.0) Lymphocytes (%) (Auto) 22.1 % (20.0-45.0) Monocytes (%) (Auto) 8.3 % (1.0-10.0) Eosinophils (%) (Auto) 2.6 % (0.0-3.0) Basophils (%) (Auto) 0.9 % (0.0-2.0) Prothrombin Time 9.9 SEC (9.30-11.50) Prothromb Time International Ratio 0.9 (0.9-1.1) Activated Partial Thromboplast Time 24 SEC (23-33) EKG Diagnostic Results Rate: normal - 87 Rhythm: NSR ST Segments: no acute changes Last Vital Signs Date Time Temp Pulse Resp B/P (MAP) Pulse Ox O2 Delivery O2 Flow Rate FiO2 06/20/19 11:30 98.8 97 16 140/58 100 Room Air Jun 20, 2019 12:15 impression: hypoglycemia DM acute encephalopathy Dementia weakness hypothyroidism PLAN: hold al DM meds D10 IVF trend glc resume other home meds family does not wish to to extra test and labs see orders Omari Villagran MD Internal Medicine [phone] Omari Villagran MD Jun 20, 2019 23:48
[2019-06-21] VITALS: BP 120/65
[2019-06-21] MEDS: Dextrose 10% 1,000 ML IV SCH (01:24)
[2019-06-21 04:00] VITALS: BP 114/62
--- NOTE | 2019-06-21 06:24 | NUR ---
NURSE NOTES: Patients blood sugar was 151 this morning.
[2019-06-21 06:33] LABS: BASOPHILS % (AUTO) 1.3 % (0.0-2.0); EOSINOPHILS % (AUTO) 1.9 % (0.0-3.0); HEMATOCRIT 37.3 % (37.0-47.0); HEMOGLOBIN 12.6 G/DL (12.0-16.0); LYMPHOCYTES % (AUTO) 19.8 % (20.0-45.0); MEAN CORPUSCULAR VOLUME 91 FL (80-99); MONOCYTES % (AUTO) 7.1 % (1.0-10.0); PLATELET COUNT 195 K/UL (150-450); RED BLOOD COUNT 4.09 M/UL (4.20-5.40); RED CELL DISTRIBUTION WIDTH 13.2 % (11.6-14.8); WHITE BLOOD COUNT 7.8 K/UL (4.8-10.8)
[2019-06-21 06:49] LABS: ALANINE AMINOTRANSFERASE 26 U/L (12-78); ALBUMIN 2.9 G/DL (3.4-5.0); ALBUMIN/GLOBULIN RATIO 0.7 (1.0-2.7); ALKALINE PHOSPHATASE 90 U/L (46-116); ANION GAP 6 mmol/L (5-15); ASPARTATE AMINO TRANSFERASE 22 U/L (15-37); BILIRUBIN,TOTAL 0.2 MG/DL (0.2-1.0); BLOOD UREA NITROGEN 24 mg/dL (7-18); CALCIUM 9.4 MG/DL (8.5-10.1); CARBON DIOXIDE 29 MMOL/L (21-32); CHLORIDE 109 MMOL/L (98-107); POTASSIUM 4.1 MMOL/L (3.5-5.1); SODIUM 144 MMOL/L (136-145)
--- NOTE | 2019-06-21 07:16 | NUR ---
NURSE NOTES: HAND-OFF: Report given to Roshan WISDOM.
--- NOTE | 2019-06-21 07:20 | NUR ---
NURSE NOTES: Received patient in bed,awake, verbally responsive. Not in respiratory/cardiac distress. Breathing is even and unlabored. no s/s of pain or discomfort. No s/s of hypo/hyperglycemia. IV is intact, running IVF of D10 @50cc/hr. Bed is in lowest position and locked. Call light within reach. Bed alarm is on. Will continue plan of care.
[2019-06-21] MEDS: Liothyronine 5mcg tab ORAL SCH (09:06)
[2019-06-21] MEDS: ARIPiprazole 2mg tab ORAL SCH (09:06)
[2019-06-21] MEDS: Aspirin EC 81mg tab ORAL SCH (09:06)
[2019-06-21] MEDS: Heparin 5000 units/ml inj SUBQ SCH ×2 (09:07→20:33)
--- NOTE | 2019-06-21 10:30 | NUR ---
NURSE NOTES: Patient noted with episodes of trying to get up without assist and while IVF is running.Bed alarm went off and R%N assisted patient and reminded patient to call nurses. Call light within reach. Will continue to monitor.
--- NOTE | 2019-06-21 11:30 | NUR ---
NURSE NOTES: Patient's blood sugar is 134mg/dl.
[2019-06-21 12:00] VITALS: BP 148/86
--- NOTE | 2019-06-21 12:18 | Internal Med Progress Note ---
Subjective Date of Service: Jun 21, 2019 Physician Name Omari Villagran Attending Physician Omari Villagran MD Current Medications Medications (Trade) Dose Ordered Sig/Stepan Route PRN Reason Start Time Stop Time Status Last Admin Dose Admin Alprazolam (Xanax) 0.25 mg BIDPRN PRN ORAL For Anxiety 06/20/19 18:45 06/27/19 18:29 06/20/19 22:37 Aripiprazole (Abilify) 2 mg DAILY ORAL 06/21/19 09:00 07/21/19 08:59 06/21/19 09:06 Aspirin (Ecotrin) 81 mg DAILY ORAL 06/21/19 09:00 07/21/19 08:59 06/21/19 09:06 Dextrose 1,000 ml @ 50 mls/hr Q20H IV 06/20/19 20:00 07/20/19 19:59 06/21/19 01:24 Dextrose (Dextrose 50%) 25 ml Q30M PRN IV Hypoglycemia 06/20/19 18:30 07/20/19 18:29 Dextrose (Dextrose 50%) 50 ml Q30M PRN IV Hypoglycemia 06/20/19 18:30 07/20/19 18:29 Escitalopram Oxalate (Lexapro) 10 mg DAILY ORAL 06/21/19 09:00 07/21/19 08:59 06/21/19 09:06 Gabapentin (Neurontin) 300 mg BEDTIME ORAL 06/20/19 21:00 07/20/19 20:59 06/20/19 20:45 Heparin Sodium (Porcine) (Heparin 5000 units/ml) 5,000 units EVERY 12 HOURS SUBQ 06/20/19 21:00 07/20/19 20:59 06/21/19 09:07 Liothyronine Sodium (Cytomel) 5 mcg DAILY ORAL 06/21/19 09:00 07/21/19 08:59 06/21/19 09:06 Meclizine HCl (Antivert) 25 mg TIDPRN PRN ORAL for dizziness 06/20/19 18:30 07/20/19 18:29 Patient Own Medication (Patient's Own Med) 1 ea DAILY ORAL 06/21/19 09:00 07/21/19 08:59 UNV Pravastatin Sodium (Pravachol) 40 mg QHS ORAL 06/20/19 21:00 07/20/19 20:59 06/20/19 20:46 Quetiapine Fumarate (SEROqueL) 50 mg Q12H PRN ORAL For Anxiety 06/20/19 18:30 07/20/19 18:29 06/20/19 20:46 Ropinirole HCl (Requip) 2 mg DAILY ORAL 06/21/19 09:00 07/21/19 08:59 06/21/19 09:06 Allergies: Coded Allergies: No Known Allergies (Unverified , 06/20/19) ROS Limited/Unobtainable: Yes Neurologic/Psychiatric: Reports: weakness All Systems: reviewed and negative except above Objective Last Vital Signs Date Time Temp Pulse Resp B/P (MAP) Pulse Ox O2 Delivery O2 Flow Rate FiO2 06/21/19 09:00 Room Air 06/21/19 04:00 97.9 68 17 114/62 (79) 96 General Appearance: no apparent distress, alert EENT: PERRL/EOMI Neck: non-tender, normal alignment, supple, normal inspection Cardiovascular: normal rate Respiratory/Chest: lungs clear Abdomen: normal bowel sounds, non tender, soft, no organomegaly, no mass Extremities: non-tender, normal inspection, no calf tenderness Neurologic: alert, responsive Skin: warm/dry Laboratory Tests Test 06/21/19 04:45 White Blood Count 7.8 K/UL (4.8-10.8) Red Blood Count 4.09 M/UL (4.20-5.40) L Hemoglobin 12.6 G/DL (12.0-16.0) Hematocrit 37.3 % (37.0-47.0) Mean Corpuscular Volume 91 FL (80-99) Mean Corpuscular Hemoglobin 30.8 PG (27.0-31.0) Mean Corpuscular Hemoglobin Concent 33.8 G/DL (32.0-36.0) Red Cell Distribution Width 13.2 % (11.6-14.8) Platelet Count 195 K/UL (150-450) Mean Platelet Volume 8.4 FL (6.5-10.1) Neutrophils (%) (Auto) 70.0 % (45.0-75.0) Lymphocytes (%) (Auto) 19.8 % (20.0-45.0) L Monocytes (%) (Auto) 7.1 % (1.0-10.0) Eosinophils (%) (Auto) 1.9 % (0.0-3.0) Basophils (%) (Auto) 1.3 % (0.0-2.0) Sodium Level 144 MMOL/L (136-145) Potassium Level 4.1 MMOL/L (3.5-5.1) Chloride Level 109 MMOL/L (98-107) H Carbon Dioxide Level 29 MMOL/L (21-32) Anion Gap 6 mmol/L (5-15) Blood Urea Nitrogen 24 mg/dL (7-18) H Creatinine 1.0 MG/DL (0.55-1.30) Estimat Glomerular Filtration Rate mL/min (>60) Glucose Level 48 MG/DL (74-106) L Calcium Level 9.4 MG/DL (8.5-10.1) Total Bilirubin 0.2 MG/DL (0.2-1.0) Aspartate Amino Transf (AST/SGOT) 22 U/L (15-37) Alanine Aminotransferase (ALT/SGPT) 26 U/L (12-78) Alkaline Phosphatase 90 U/L (46-116) Total Protein 7.1 G/DL (6.4-8.2) Albumin 2.9 G/DL (3.4-5.0) L Globulin 4.2 g/dL Albumin/Globulin Ratio 0.7 (1.0-2.7) L Microbiology Date/Time Source Procedure Growth Status 06/20/19 11:45 Nasal Nares - Final Complete 06/20/19 11:45 Nasal Nares - Final Complete 06/20/19 16:55 Rectum Received Intake and Output 06/20/19 06/21/19 19:00 07:00 Intake Total 550 ml 250 ml Output Total 0 ml Balance 550 ml 250 ml Intake IV Total 550 ml 250 ml Output Urine Total 0 ml # Voids 4 Assessment/Plan Status: stable, progressing, tolerating diet Assessment/Plan hypoglycemia acute encephalopathy type 2 DM dementia weakness urinary incontinence hx recurrent UTI PLAN: DC D10 IVF off all DM meds monitor accucheck UA via straight cath d/w RN Omari Villagran MD [phone] Omari Villagran MD Jun 21, 2019 12:18
--- NOTE | 2019-06-21 12:48 | NUR ---
NURSE NOTES: Patient was seen by Dr. Mcfarland and received order to d/c IVF and monitor patient's blood sugar and d/c Myrbetriq.
--- NOTE | 2019-06-21 13:24 | NUR ---
CASE MANAGEMENT:INITIAL REVIEW 89 YR OLD FEMALE BIBA FROM [facility] CC;ALTERED MENTAL STATUS SI;DEMENTIA. DM. HYPOGLYCEMIA. 98.9 98 20 155/75 95% ON RA BUN 31 BG 116 CXR - NEGATIVE IS;IVF NS BOLUS X1 D5OW IV STAT X2 D5 1/2 NS X1 ADMITTED TO MED SURG MED SURG STATUS DCP;FROM HOME
--- NOTE | 2019-06-21 14:43 | NUR ---
PAVING SUPERVISOR NOTE SW received a notification that pt may have licensed social worker concern. PT is Farsi speaking. Per chart review, pt attends [facility] assisted living [phone] contact information is written down. Emergency contacts are listed: Divine Crawford (child) [phone] and Yaz Crawford (child) [phone]. SW spoke to pt w/ assistance from [facility] spanish medical interpreter Armando #[id number]. Pt is awake, and soft voiced. Pt states she is , has four children and she does not have any concerns/issues/needs at this time. SW encouraged pt to verbalize any concern/needs. Pt verbalized understanding. SW to F/U as needed. Signed: 06/21/19 at 1448 by WILIAN PEREZ <Co-Signature Required>
[2019-06-21 16:00] VITALS: BP 151/69
--- NOTE | 2019-06-21 17:00 | NUR ---
NURSE NOTES: patient's blood sugar is 336mg/dl. Patient is asymptomatic. Patient ate some snacks prior to blood sugar check. Paged Dr. Villagran. Awaiting for return call.
--- NOTE | 2019-06-21 18:12 | NUR ---
NURSE NOTES: RN spoke to Dr. Villagran in regards toblood sugar of 336mg/dl with no new order.
--- NOTE | 2019-06-21 19:25 | NUR ---
NURSE NOTES: Pt is in bed awake, alert orientedx1 and confused. Breathing even and unlabored, no acute distress noted. Fall precaution is in place. bed in low and locked position. Bed alarm is on. call light within reach. Will continue to monitor the pt.
--- NOTE | 2019-06-21 19:38 | NUR ---
HAND-OFF: Report given to Joseph.
[2019-06-21 20:00] VITALS: BP 144/74
[2019-06-21] MEDS ORDERED: RAMIPRIL2.5 MG ORAL (20:02)
[2019-06-21] MEDS ORDERED: magnesium gluconate PO (20:02)
[2019-06-21] MEDS ORDERED: HYDROXYZINE HCL25 M1 PO (20:02)
[2019-06-21] MEDS ORDERED: FERROUS SULFAT325 MG ORAL (20:02)
[2019-06-21] MEDS ORDERED: VITAMIN D-32000 UNI2 PO (20:02)
[2019-06-21] MEDS ORDERED: OYSTER SHELL C500 MG PO (20:02)
[2019-06-21] MEDS ORDERED: Basaglar SUBQ (20:02)
[2019-06-21] MEDS ORDERED: TRIAMCINOLONE A15 G1 TP (20:02)
[2019-06-21] MEDS ORDERED: PROLIA60 MG/1 ML SUBQ (20:02)
[2019-06-21] MEDS ORDERED: NOVOLOG100 UNITS1 SUBQ (20:02)
[2019-06-21] MEDS ORDERED: Xyzal PO (20:02)
[2019-06-21] MEDS ORDERED: AMMONIUM LACTA385 GM TP (20:02)
[2019-06-22] VITALS: BP 127/64
[2019-06-22 04:00] VITALS: BP 121/62
--- NOTE | 2019-06-22 06:21 | NUR ---
NURSE NOTES: Patients blood sugar is 114 this morning.
--- NOTE | 2019-06-22 07:20 | NUR ---
NURSE NOTES: received patient in bed sitting on the edge of bed, patient awake, alert orientedx2 and confused. no sign of distress. on Fall precaution maintained bed in low and locked position. Bed alarm is on. call light within reach. Will continue to monitor the patient, mar calixto.
--- NOTE | 2019-06-22 07:23 | NUR ---
HAND-OFF: Report given to ALYX Robertson. Endorsed about the highfall risk status to oncoming shift.
[2019-06-22 08:13] VITALS: BP 105/65
[2019-06-22] MEDS: ARIPiprazole 2mg tab ORAL SCH (08:16)
[2019-06-22] MEDS: Liothyronine 5mcg tab ORAL SCH (08:16)
[2019-06-22] MEDS: Aspirin EC 81mg tab ORAL SCH (08:17)
[2019-06-22] MEDS: Heparin 5000 units/ml inj SUBQ SCH (08:18)
[2019-06-22 11:43] VITALS: BP 123/71
--- NOTE | 2019-06-22 12:55 | NUR ---
CASE MANAGEMENT:DISCHARGE NOTE CALL MADE TO PATIENTS DAUGHTER BHUMIKA RAYO @ [phone]. INFORMED PATIENT IS DISCHARGED AND WILL RETURN TO HER PLACE OF RESIDENCE. CONFIRMED ADDRESS ON [address]. DAUGHTER STATES THAT IS PTS OLD ADDRESS. NOW RESIDES IN [facility] [address] [place] [address] ALYX STEVESN MADE AWARE
--- NOTE | 2019-06-22 13:28 | CDS Physician Query ---
Clarification is required for compliance, coding accuracy, and to reflect severity of illness for this patient Dear Len Aguilera MD Date:06/22/2019 Street Cleaning Equipment Operator/CDS Name: Bridger Quiroga Patient is an 89-year-old female brought in by EMS after increased confusion. Patient some prior history of dementia. She is also type II diabetic. Assessment/Plan hypoglycemia acute encephalopathy "acute encephalopathy" documented in Progress notes Please indicate the nature and chronicity of the condition below: [x] Metabolic Encephalopathy [] Toxic Encephalopathy [] Toxic - Metabolic Encephalopathy [] Encephalopathy, Other [x] Dementia with Delirium [] Hypoxic encephalopathy [] Posterior reversible encephalopathy syndrome [] Other: [] Not Applicable Present on Admission: [x] Yes [] No [] Clinically Undetermined len lowe MD jun Physician signature Date Please also document in your Progress Notes and/or Discharge Summary and indicate if the condition was present on admission. FLIP
--- NOTE | 2019-06-22 14:04 | NUR ---
nurse notes discharge to [facility] obtained, patient family notified and agreed with the plan of care, called [facility] spoke to Vanessa made aware regarding plan of care , patient is dicharge tack picker at 2 pm by ambulance, discharge teaching done thru tel and verbalized understanding 1410 Discharged in stable condition accompanied by ambulance personnel with all belongings taken, discharged via ambulance mar calixto
--- NOTE | 2019-06-22 17:30 | Consultation ---
DATE OF CONSULTATION: 06/22/2019 ENDOCRINOLOGY CONSULTATION CONSULTING PHYSICIAN: Morgan Amaya M.D. REFERRING PHYSICIAN: Omari Villagran M.D. REASON FOR CONSULTATION: Hypoglycemia. HISTORY OF PRESENT ILLNESS: This is an 89-year-old female with history of diabetes, who was admitted to the hospital with hypoglycemia with altered mental status. The patient was started on dextrose drip. I was called to manage diabetes. The patient has underlying dementia. She is a very poor historian and she has been having the same problem with recurrent hypoglycemia with hospital admissions. PAST MEDICAL HISTORY: 1. Dementia. 2. Hypertension. 3. Osteoporosis. 4. Diabetes. PAST SURGICAL HISTORY: None listed. ALLERGIES TO MEDICATIONS: None. MEDICATIONS: Reviewed and reconciled. REVIEW OF SYSTEMS: Difficult to obtain. PHYSICAL EXAMINATION: VITAL SIGNS: Blood pressure 150/75, pulse of 80, temperature 98.8, respiratory rate of 16. HEENT: Pupils are equal and reactive to light. Sclerae anicteric. NECK: No JVD. No thyromegaly. No bruit. LUNGS: Clear. HEART: Regular rate and rhythm. ABDOMEN: Positive bowel sounds. EXTREMITIES: No clubbing, cyanosis, or edema. LABORATORY VALUES: WBC 7.8, hemoglobin 12, hematocrit 37, platelets of 195. Sodium 144, potassium 4.1, chloride 109, bicarb 29, BUN 18 creatinine 1.2, glucose of 48. Point of care glucose is 134, 339, 48. FAMILY HISTORY: Noncontributory. SOCIAL HISTORY: No smoking, alcohol, or drug use. DIAGNOSES: 1. Diabetes, out of control. 2. Hypoglycemia, most likely secondary to Basaglar. 3. Dementia. PLAN: 1. Continue for glucose monitoring without insulin coverage. 2. Novolog is on hold. We will start the patient on Januvia and continue glucose monitoring. Further adjustment to diabetic medication will be done according to blood glucose values. Thank you, Dr. Villagran, for the courtesy of this consultation. Morgan Amaya M.D. DR: ALYX/EGE JOB#: [id number] CC: FLIP
--- NOTE | 2019-06-23 22:31 | Discharge Summary ---
Discharge Summary Discharge Summary _ DATE OF ADMISSION: 06/20/2019 DATE OF DISCHARGE: 06/22/2019 DISCHARGED BY: Dr Villagran REASON FOR ADMISSION: 89 years old female with past medical history of hypertension, diabetes mellitus , dementia, osteoporosis, presented to the hospital with altered mental status and hypoglycemia. CONSULTANTS: Endocrinology Dr. Amaya [facility]SE: Patient admitted. All anti-glycemic medications were on hold. Patient started on IV fluids with dextrose. Broadcast Chief Engineer followed. Family requested no further testing. Blood glucose was closely monitored without any insulin coverage. Blood sugar stabilized. Patient later started on Januvia . Diabetic diet provided. Blood cultures were negative. Influenza swab was negative. Home medication resumed. DVT prophylaxis provided. Levothyroxine continued. Patient clinically stabilized and was ready for discharge back to assisted living. FINAL DIAGNOSES: Acute encephalopathy, likely due to hypoglycemia Diabetes [id number] Hypoglycemia , most likely secondary to Basaglar Dementia Hypothyroidism r DISCHARGE MEDICATIONS: See Medication Reconciliation list. DISCHARGE INSTRUCTIONS: Patient was discharged to assisted living. Follow-up with a primary care provider in 1 week. I have been assigned to dictate discharge summary for this account. I was not involved in the patient's management. Claudia Sheth NP Jun 23, 2019 22:31
== END 2019-06-22 14:18 | disposition home or self-care (01) | DRG 637 ==
LOC: EDBD 11:25 → CANBEDREQ 12:00 → EMR 12:19 → 4E 15:38 → EDBEDREQ 16:41 → 4E 20:37
DX: E11.649 Type 2 diabetes mellitus with hypoglycemia without coma (principal); G93.41 Metabolic encephalopathy; F05 Delirium due to known physiological condition; F03.90 Unspecified dementia, unspecified severity, without behavioral disturbance, psychotic disturbance, mood disturbance, and anxiety; T50.995A Adverse effect of other drugs, medicaments and biological substances, initial encounter; E03.9 Hypothyroidism, unspecified; M81.0 Age-related osteoporosis without current pathological fracture
CPT/HCPCS: 36415; 71045; 80053; 82550; 82553; 82962; 83605; 84484; 85025; 85610; 85730; 86710; 87040; 87081; 93005; 96361; 96374; 96376; 99285; J7030